=== PATIENT | female | born 1980 | race Caucasian/White ===

== ENCOUNTER → 2017-01-08 | Outpatient (CLI) | payer OTHER | LOC: FIMAGING 07:57 | PROVIDERS: ATTEND Obstetrics & Gynecology | DX: O09.522 Supervision of elderly multigravida, second trimester (principal); Z3A.21 21 weeks gestation of pregnancy ==

== ENCOUNTER → 2017-03-25 | Outpatient (CLI) | payer OTHER | LOC: FIMAGING 08:43 | PROVIDERS: ATTEND Obstetrics & Gynecology | DX: O09.523 Supervision of elderly multigravida, third trimester (principal); Z3A.31 31 weeks gestation of pregnancy ==

== ENCOUNTER → 2017-04-29 | Outpatient (CLI) | payer OTHER | LOC: FIMAGING 14:02 | PROVIDERS: ATTEND Obstetrics & Gynecology | DX: O36.5930 Maternal care for other known or suspected poor fetal growth, third trimester, not applicable or unspecified (principal); O09.523 Supervision of elderly multigravida, third trimester; Z3A.36 36 weeks gestation of pregnancy ==

== ENCOUNTER → 2017-05-06 | Outpatient (CLI) | payer OTHER | LOC: FIMAGING 12:04 | PROVIDERS: ATTEND Obstetrics & Gynecology | DX: Z34.93 Encounter for supervision of normal pregnancy, unspecified, third trimester (principal); Z3A.38 38 weeks gestation of pregnancy ==

== ENCOUNTER 2017-05-10 06:00 | Inpatient (IN) | payer OTHER ==
[2017-05-10] MEDS ORDERED: OXYTOCIN/RINGERS LACTATE 1,000 ML IV PRN (07:09)
[2017-05-10] MEDS ORDERED: EPSOM SALT 454 GM TP PRN (07:09)
[2017-05-10] MEDS ORDERED: AMPICILLIN SODIUM 2 GM in NS 100 ML IV ONE (07:09)
[2017-05-10] MEDS ORDERED: OLIVE OIL 118 ML BTL MISC PRN (07:09)
[2017-05-10] MEDS ORDERED: TERBUTALINE SULFATE 1 MG/ML VIAL IV PRN (07:09)
[2017-05-10 07:32] LABS: % IMMATURE GRANULYOCYTES 0.7 % (0.0-1.1); ABSOLUTE IMMATURE GRANULOCYTES 0.05 10^3/uL (0.00-0.10); ADD DIFF? NO; ADD MORPH? NO; ADD SCAN? NO; ATYPICAL LYMPHOCYTE FLAG 10 (0-99); FRAGMENT RBC FLAG 0 (0-99); HEMATOCRIT 40.6 % (38.0-47.0); HEMOGLOBIN 14.1 g/dL (12.6-16.3); LEFT SHIFT FLG 0 (0-99); LIPEMIA HEMOLYSIS FLAG 90 (0-99); MEAN CELL HEMOGLOBIN CONCENTR. 34.7 g/dL (32.4-36.7); MEAN CELL VOLUME 97.8 fL (81.5-99.8); MEAN PLATELET VOLUME 10.3 fL (8.7-11.7); PLATELET CLUMPS FLAG 10 (0-99); PLATELET COUNT 288 10^3/uL (150-400); RED BLOOD CELL COUNT 4.15 10^6/uL (4.18-5.33); RED CELL DISTRIBUTION WIDTH 12.7 % (11.5-15.2)
[2017-05-10] MEDS ORDERED: LR 500 ML IV PRN (07:56)
--- NOTE | 2017-05-10 07:58 | OBPROG ---
OBG Labor Progress Note Assessment/Plan: Assessment: 36 yo @ 38 5/7, IOL for IUGR Plan: 05/10/17 07:57 FWB reassuring. GBS positive, begin ampicillin. Anticipate . Does not desire epidural. Subjective: 36 yo @ 38 5/7, IOL for IUGR Objective: 05/10/17 06:48 VSS - SVE Dilation (cm): 1 Effacement (%): 75 Station: -1 [place] Current Contraction Pattern: Irregular FHR (bpm): 140 FHR Pattern Variability: Moderate FHR Category: 2 Membranes: AROM Amniotic Fluid Color: Clear - Procedures Non-surgical Procedures: Amniotomy ICD10 Worksheet Patient Problems: Problems Problem Status Onset affected by growth restriction Acute
[2017-05-10] MEDS ORDERED: OXYTOCIN/RINGERS LACTATE 500 ML IV SCH (08:00)
[2017-05-10] MEDS: LR 1,000 ML IV PRN ×2 (08:00→12:32)
[2017-05-10] MEDS: AMPICILLIN SODIUM 1 GM in NS 100 ML IV SCH ×2 (12:20→19:15)
[2017-05-10] MEDS ORDERED: NS 100 ML BAG (MINI-BAG) IV ONE (12:23)
--- NOTE | 2017-05-10 13:17 | OBPROG ---
OBG Labor Progress Note Assessment/Plan: Assessment: 36 yo @ 38 5/7, IOL for IUGR Plan: FWB reassuring. GBS positive, s/p ampicillin. Anticipate . Does not desire epidural. 05/10/17 13:16 Subjective: 36 yo @ 38 5/7, IOL for IUGR Objective: 05/10/17 06:48 Patient ABO/Rh O POSITIVE 05/10/17 06:48 vss - SVE Dilation (cm): 2 Effacement (%): 90 Station: 0 [place] Current Contraction Pattern: Regular FHR (bpm): 130 FHR Pattern Variability: Moderate FHR Category: 2 Membranes: AROM Amniotic Fluid Color: Clear - Procedures Non-surgical Procedures: Amniotomy Oxytocin Orders Assessment - Pre-Induction/Augmentation Assessment Gestational Age: 38 week(s) and 3 day(s) ICD10 Worksheet Patient Problems: Problems Problem Status Onset affected by growth restriction Acute
[2017-05-10] MEDS ORDERED: LIDOCAINE 1% 300 MG/30 ML SDV ONE (14:56)
[2017-05-10] MEDS ORDERED: AMMONIA AROMATIC 1 EACH AMP IH ONE (14:56)
[2017-05-10] MEDS ORDERED: OLIVE OIL 118 ML BTL ONE (14:56)
[2017-05-10] MEDS ORDERED: MISOPROSTOL 200 MCG TAB ONE (14:57)
[2017-05-10] MEDS ORDERED: OXYTOCIN 10 UNIT/ML VIAL ONE (14:57)
[2017-05-10] MEDS ORDERED: ACETAMINOPHEN 325 MG TAB PO PRN (15:21)
[2017-05-10] MEDS ORDERED: HYDROCORTISONE 0.5% CREAM TP PRN (15:21)
[2017-05-10] MEDS ORDERED: SIMETHICONE 80 MG TAB CHEW PO PRN (15:21)
--- NOTE | 2017-05-10 15:25 | OBDEL ---
Info Type: Vaginal GBS+: Yes Antibiotic Used for + GBS: Ampicillin Number of Antibiotic Doses Given: 2 Indications for Delivery: Growth Restriction w/Abnormal Doppler studies Vaginal Delivery - Labor and Delivery Onset of Contractions Date: 05/10/17 Onset of Contractions Time: 08:00 Onset of Contractions Type: Induced Rupture of Membranes Date: 05/10/17 Rupture of Membranes Time: 07:45 Rupture of Membranes Type: Artificial Amniotic Fluid Color: Clear Dilation Complete Date: 05/10/17 Dilation Complete Time: 14:50 Placenta Delivery Date: 05/10/17 Non-surgical Procedures: Amniotomy Vaginal Sponge Count Correct: Yes Vaginal Needle Count Correct: Yes Vaginal Sweep Performed: No EBL: 300 ml Delivery Events: None Data [place] Delivery Date: 05/10/17 Delivery Time: 15:10 KRIS: 05/21/17 Gestational Age: 38 week(s) and 3 day(s) Sex of : Female Score (1 Min): 8 Score (5 Min): 9 ICD10 Worksheet Patient Problems: Problems Problem Status Onset affected by growth restriction Acute
[2017-05-10] MEDS: IBUPROFEN 600 MG TAB PO PRN (15:41)
[2017-05-10 21:44] VITALS: RESP 16; O2SAT 99
[2017-05-10] MEDS: DOCUSATE SODIUM 100 MG CAP PO PRN (21:44)
[2017-05-11] MEDS: IBUPROFEN 600 MG TAB PO PRN ×4 (01:29→21:08)
[2017-05-11] MEDS: DOCUSATE SODIUM 100 MG CAP PO PRN (07:30)
--- NOTE | 2017-05-11 09:49 | SOAPPROG ---
SOAP Progress Note Assessment/Plan: Assessment: 36 yo s/p , ppd 1, doing well. Plan: Rh +, rubella immune, home today or tomorrow. 05/11/17 09:48 Subjective: 36 yo s/p , ppd 1, doing well. Objective: Vital Signs Temp Pulse Resp BP Pulse Ox 36.1 C 65 16 101/62 99 05/10/17 19:55 05/10/17 19:55 05/10/17 19:55 05/10/17 19:55 05/10/17 19:55 Laboratory Results 05/10/17 06:48 05/10/17 05/11/17 05/12/17 05:59 05:59 05:59 Output Total 400 Balance -400 Physical Exam - Physical Exam General Appearance: no apparent distress Respiratory: lungs clear Cardiac/Chest: regular rate, rhythm Abdomen: non-tender Skin: warm/dry Extremities: non-tender Neuro/Psych: oriented x 3 ICD10 Worksheet Patient Problems: Problems Problem Status Onset affected by growth restriction Acute
--- NOTE | 2017-05-11 09:55 | OBGCSDC ---
General Delivery Information - General Info : 2 Para: 2 Delivery Physician/CNM: Meghan Luna Admission Date: 05/10/17 Labs: Patient ABO/Rh O POSITIVE 05/10/17 06:48 Hct 40.6 % (38.0-47.0) 05/10/17 06:48 Vaginal - Diagnosis Labor: Induced Presentation at Delivery: Vertex Rupture of Membranes Type: Artificial Amniotic Fluid Color: Clear Delivery Events: None - Operations/Procedures Non-surgical Procedures: Amniotomy L&D Analgesia/Anesthesia Type: None - Hospital Course Antepartum: AMA, IUGR Intrapartum: none : none - Delivery Non-surgical Procedures: Amniotomy L&D Analgesia/Anesthesia Type: None Data [place] Delivery Date: 05/10/17 Delivery Time: 15:10 KRIS: 05/21/17 Gestational Age: 38 week(s) and 4 day(s) Sex of : Female Weight (gm): 2714 g Score (1 Min): 8 Score (5 Min): 9
[2017-05-12] MEDS: DOCUSATE SODIUM 100 MG CAP PO PRN (04:27)
[2017-05-12] MEDS: IBUPROFEN 600 MG TAB PO PRN (06:21)
--- NOTE | 2017-05-12 08:32 | OBPP ---
Progress Note Assessment/Plan: Assessment: 36 yo s/p , ppd 2, doing well - discharge held yesterday for baby's continued hospitalization for hyperbilirubinemia issues, now stable and ready for discharge. Plan: Discharge home No RX for pain desired F/U in 6 weeks for PP visit or sooner prn F/U in 4 weeks for our therapist visit in our clinic Bleeding/pain/fever precautions 05/12/17 08:31 Subjective: No complaints Objective: 05/10/17 06:48 Patient ABO/Rh O POSITIVE 05/10/17 06:48 Temp Pulse Resp BP Pulse Ox 36.1 C 65 16 101/62 99 05/10/17 19:55 05/10/17 19:55 05/10/17 19:55 05/10/17 19:55 05/10/17 19:55 Uterine Position/Fundal Height: Umbilicus -1 Uterine Tone: Firm
[2017-05-12 09:32] VITALS: BP 104/70; PULSE 61; TEMP 97.6
== END 2017-05-12 10:00 | disposition home or self-care (01) | DRG 775 ==
LOC: FLD 06:10 → FOB 18:22
PROVIDERS: ADMIT Obstetrics & Gynecology; ATTEND Obstetrics & Gynecology
PROC: 3E033VJ Introduction of Other Hormone into Peripheral Vein, Percutaneous Approach (ICD-10-PCS; principal; 2017-05-10)
PROC: 10E0XZZ Delivery of Products of Conception, External Approach (ICD-10-PCS; principal; 2017-05-10)
DX: O36.5930 Maternal care for other known or suspected poor fetal growth, third trimester, not applicable or unspecified (principal); Z3A.38 38 weeks gestation of pregnancy; Z37.0 Single live birth
CPT/HCPCS: J0290; J2590